=== PATIENT | female | born 1995 | race Hispanic/Latino ===

== ENCOUNTER 2019-10-04 16:21 | Emergency (ER) | payer SELFPAY ==
[2019-10-04] MEDS ORDERED: IBUPROFEN 400 MG TAB ONE (17:41)
--- NOTE | 2019-10-04 17:43 | RAD REPORT ---
EXAM DESCRIPTION: RAD - Spine Thoracic W/Swimmers - 10/04/2019 5:15 pm CLINICAL HISTORY: Back pain FINDINGS: No fracture or dislocation Mild scoliosis
[2019-10-04 17:46] LABS: Urine Blood TRACE (NEG); Urine Glucose NEGATIVE (NEG); Urine Protein NEGATIVE (NEG)
[2019-10-04 17:58] LABS: Urine Bacteria LOADED /HPF (<20); Urine Culture Reflex Order REFLEXED; Urine Mucus LIGHT /HPF (NONE SEEN); Urine RBC <5 /HPF (NONE SEEN)
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
[2019-10-04 19:26] VITALS: BP 123/82; TEMP 99.2; O2SAT 100
== END 2019-10-04 19:18 | disposition home or self-care (01) ==
LOC: ER 16:21
DX: S16.1XXA Strain of muscle, fascia and tendon at neck level, initial encounter (principal); M54.6 Pain in thoracic spine; N39.0 Urinary tract infection, site not specified; V43.52XA Car driver injured in collision with other type car in traffic accident, initial encounter; F17.210 Nicotine dependence, cigarettes, uncomplicated
CPT/HCPCS: 72040; 72072; 72125; 81003; 81015; 81025; 87077; 87086; 87088; 87186; 99284

== ENCOUNTER 2020-02-24 09:51 | Emergency (ER) | payer SELFPAY ==
--- NOTE | 2020-02-24 10:26 | ER ---
Nurse's Notes [facility] Name: Chio Pham Age: 25 yrs Sex: Female : 1995 Arrival Date: 02/24/2020 Time: 09:53 Bed 13 Private MD: Diagnosis: Streptococcal pharyngitis Presentation: 02/23 10:04 Chief complaint: Patient states: Chills/sweating, sore throat for 1 day. [place] hot last ll1 night. No N/V/D. Coronavirus screen: Client denies travel out of the [place] in the last 14 days. fever, sore throat, Client presents with at least one sign or symptom that may indicate coronavirus-19. Standard/surgical mask placed on the client. Ebola Screen: Patient denies travel to an Ebola-affected area in the 21 days before illness onset. Initial Sepsis Screen: Does the patient meet any 2 criteria? No. Patient's initial sepsis screen is negative. Risk Assessment: Do you want to hurt yourself or someone else? Patient reports no desire to harm self or others. Onset of symptoms was February 23, 2020. 10:04 Method Of Arrival: Ambulatory ll1 10:04 Acuity: MARCOS 4 ll1 Historical: - Allergies: 10:06 No Known Allergies; ll1 - Home Meds: 10:38 None [Active]; jl7 - PMHx: 10:38 None; jl7 - PSHx: 10:06 Appendectomy; ll1 - Immunization history:: Flu vaccine is not up to date. - Social history:: Smoking status: Patient reports the use of cigarette tobacco products, denies chronic smoking, but will smoke occasionally, Patient uses alcohol, only on a social basis. Patient/guardian denies using IV drugs. Screenin:38 Abuse screen: Denies threats or abuse. Denies injuries from another. Nutritional jl7 screening: No deficits noted. Tuberculosis screening: No symptoms or risk factors identified. Fall Risk None identified. Assessment: 10:37 General: Appears in no apparent distress. uncomfortable, Behavior is calm, cooperative, jl7 appropriate for age. Pain: Complains of pain in sore throat Pain currently is 8 out of 10 on a pain scale. Neuro: Level of Consciousness is awake, alert, obeys commands, Oriented to person, place, time, situation. Cardiovascular: Patient's skin is warm and dry. Respiratory: Airway is patent Respiratory effort is even, unlabored, Respiratory pattern is regular, symmetrical. EENT: Reports pain in sore throat. Derm: Skin is pink, warm \T\ dry. Vital Signs: 10:04 BP 110 / 94; Pulse 75; Resp 17; Temp 98.5; Pulse Ox 100% ; Pain 8/10; ll1 ED Course: 09:53 Patient arrived in ED. ag5 10:05 Triage completed. ll1 10:06 Arm band placed on Patient placed in an exam room, on a stretcher. ll1 10:07 Boo Castillo PA is PHCP. cp 10:07 Boo Guerra MD is Attending Physician. samson 10:32 Elias Toro, RN is Primary Nurse. jl7 10:38 Patient has correct armband on for positive identification. Bed in low position. Call jl7 light in reach. Side rails up X 1. 10:38 No provider procedures requiring assistance completed. Patient did not have IV access jl7 during this emergency room visit. Administered Medications: No medications were administered Outcome: 10:26 Discharge ordered by MD. cp 10:38 Discharged to home ambulatory. jl7 10:38 Condition: stable 10:38 Discharge instructions given to patient, Instructed on discharge instructions, follow up and referral plans. medication usage, Demonstrated understanding of instructions, follow-up care, medications, Prescriptions given X 1. 10:39 Patient left the ED. jl7 Signatures: Boo Castillo PA PA cp Leal, Jahala, RN RN jl7 Tila Alvarado ag5 Eddie Mayer RN RN ll1
--- NOTE | 2020-02-24 10:26 | EDPHYS ---
Physician Documentation [facility] Name: Chio Pham Age: 25 yrs Sex: Female : 1995 Arrival Date: 02/24/2020 Time: 09:53 Bed 13 Private MD: ED Physician Boo Guerra HPI: 02/23 10:19 This 25 yrs old Female presents to ER via Ambulatory with complaints of Sore cp Throat. 10:19 The patient presents with sore throat. The patient describes throat pain as constant. cp Onset: The symptoms/episode began/occurred yesterday. Severity of symptoms: in the emergency department the symptoms have improved, mildly. Associated signs and symptoms: Pertinent positives: fever, Pertinent negatives cough, diarrhea, dysphagia, vomiting. Historical: - Allergies: 10:06 No Known Allergies; ll1 - Home Meds: 10:38 None [Active]; jl7 - PMHx: 10:38 None; jl7 - PSHx: 10:06 Appendectomy; ll1 - Immunization history:: Flu vaccine is not up to date. - Social history:: Smoking status: Patient reports the use of cigarette tobacco products, denies chronic smoking, but will smoke occasionally, Patient uses alcohol, only on a social basis. Patient/guardian denies using IV drugs. ROS: 10:20 Eyes: Negative for injury, pain, redness, and discharge. cp 10:20 Constitutional: Negative for body aches, chills, fever, poor PO intake. 10:20 ENT: Positive for sore throat, Negative for drainage from ear(s), ear pain, difficulty swallowing, difficulty handling secretions. 10:20 Cardiovascular: Negative for chest pain. 10:20 Respiratory: Negative for cough, shortness of breath, wheezing. 10:20 Abdomen/GI: Negative for abdominal pain, nausea, vomiting, and diarrhea. 10:20 Skin: Negative for rash. 10:20 Neuro: Negative for headache. 10:20 All other systems are negative. Exam: 10:22 Head/Face: Normocephalic, atraumatic. cp 10:22 Constitutional: The patient appears in no acute distress, alert, awake, non-toxic, well developed, well nourished. 10:22 Eyes: Periorbital structures: appear normal, Conjunctiva: normal, no exudate, no injection, Sclera: no appreciated abnormality, Lids and lashes: appear normal, bilaterally. 10:22 ENT: External ear(s): are unremarkable, Nose: is normal, Mouth: Lips: moist, Oral mucosa: moist, Posterior pharynx: Airway: no evidence of obstruction, patent, Tonsils: no enlargement, no exudate, erythema, that is moderate, exudate, is not appreciated. 10:22 Neck: ROM/movement: is normal, is supple, no meningismus, no nuchal rigidity, Lymph nodes: lymphadenopathy is appreciated, anterior cervical nodes. 10:22 Chest/axilla: Inspection: normal. 10:22 Cardiovascular: Rate: 10:22 Respiratory: the patient does not display signs of respiratory distress, Respirations: normal, no use of accessory muscles, no retractions, labored breathing, is not present. Vital Signs: 10:04 BP 110 / 94; Pulse 75; Resp 17; Temp 98.5; Pulse Ox 100% ; Pain 8/10; ll1 MDM: 10:08 Patient medically screened. [facility] 10:10 Differential diagnosis: group A strep tonsillitis, mononucleosis, pharyngitis, cp retropharyngeal abcess tonsillitis, uvulitis, COVID-19. 10:25 Data reviewed: vital signs, nurses notes, and as a result, I will discharge patient. 10:25 Counseling: I had a detailed discussion with the patient and/or guardian regarding: the cp historical points, exam findings, and any diagnostic results supporting the discharge/admit diagnosis, to return to the emergency department if symptoms worsen or persist or if there are any questions or concerns that arise at home. Administered Medications: No medications were administered Disposition: 16:01 Co-signature as Attending Physician, Boo Guerra MD I agree with the assessment and [facility] plan of care. Disposition: 02/24/20 10:26 Discharged to Home. Impression: Streptococcal pharyngitis. - Condition is Stable. - Discharge Instructions: Strep Throat, Form - Excuse from Work, School, or Physical Activity. - Prescriptions for Amoxicillin 875 mg Oral Tablet - take 1 tablet by ORAL route every 12 hours for 10 days; 20 tablet. - Medication Reconciliation Form, Thank You Letter, Antibiotic Education, Prescription Opioid Use, Work release form form. - Follow up: Private Physician; When: 2 - 3 days; Reason: Worsening of condition. - Problem is new. - Symptoms have improved. Signatures: Boo Guerra MD MD cha Page, Corey, PA PA cp Elias Toro RN RN jl7 Eddie Mayer RN RN ll1 Corrections: (The following items were deleted from the chart) 10:39 10:26 02/24/2020 10:26 Discharged to Home. Impression: Streptococcal pharyngitis. jl7 Condition is Stable. Forms are Medication Reconciliation Form, Thank You Letter, Antibiotic Education, Prescription Opioid Use. Follow up: Private Physician; When: 2 - 3 days; Reason: Worsening of condition. Problem is new. Symptoms have improved. cp 21:18 10:25 ED course: VSS. Will discharge to home for continued monitoring. Patient cp instructed to quarantine while awaiting results of COVID-19 testing. cp
[2020-02-24 10:45] VITALS: BP 110/94; TEMP 98.5; O2SAT 100
== END 2020-02-24 10:39 | disposition home or self-care (01) ==
LOC: ER 09:51
DX: J02.0 Streptococcal pharyngitis (principal); F17.210 Nicotine dependence, cigarettes, uncomplicated
CPT/HCPCS: 99282

== ENCOUNTER 2020-03-25 08:19 | Emergency (ER) | payer SELFPAY ==
--- NOTE | 2020-03-25 08:37 | ER ---
Nurse's Notes [facility] Name: Chio Pham Age: 25 yrs Sex: Female : 1995 Arrival Date: 03/25/2020 Time: 08:22 Bed 4 Private MD: Diagnosis: Diarrhea, unspecified-resolving Presentation: 03/25 08:29 Chief complaint: Patient states: Diarrhea yesterday that is better today. Pt's work ss sent her over for a work note to return to work. Coronavirus screen: Client denies travel out of the [place] in the last 14 days. Ebola Screen: Patient denies exposure to infectious person. Patient denies travel to an Ebola-affected area in the 21 days before illness onset. Initial Sepsis Screen: Does the patient meet any 2 criteria? No. Patient's initial sepsis screen is negative. Does the patient have a suspected source of infection? No. Patient's initial sepsis screen is negative. Risk Assessment: Do you want to hurt yourself or someone else? Patient reports no desire to harm self or others. Onset of symptoms was March 24, 2020. 08:29 Method Of Arrival: Ambulatory ss 08:29 Acuity: MARCOS 5 ss Historical: - Allergies: 08:31 No Known Allergies; ss - Home Meds: 08:31 None [Active]; ss - PMHx: 08:31 None; ss - PSHx: 08:31 Appendectomy; ss - Immunization history:: Adult Immunizations up to date. - Social history:: Smoking status: Patient reports the use of cigarette tobacco products, denies chronic smoking, but will smoke occasionally. Screenin:32 Abuse screen: Denies threats or abuse. Nutritional screening: No deficits noted. ss Tuberculosis screening: Never had TB. Fall Risk None identified. Assessment: 08:32 General: Appears in no apparent distress. comfortable, Behavior is calm, cooperative, ss Denies fever, feeling ill, fatigue, chills. Pain: Denies pain. Neuro: Level of Consciousness is awake, alert, obeys commands, Oriented to person, place, time, situation. Cardiovascular: Capillary refill < 3 seconds is brisk in bilateral fingers. Respiratory: Airway is patent Respiratory effort is even, unlabored, Respiratory pattern is regular, symmetrical. GI: Reports diarrhea that started yesterday, is better today Patient currently denies nausea, vomiting. : Denies burning with urination. EENT: Oral mucosa is moist. Throat is clear. Derm: Skin is intact, is healthy with good turgor, Skin is pink, warm \T\ dry. normal. Musculoskeletal: Circulation, motion, and sensation intact. Range of motion: intact in all extremities, Swelling absent. Vital Signs: 08:29 BP 116 / 74; Pulse 60; Resp 15; Temp 97.8(TE); Pulse Ox 97% on R/A; Weight 81.65 kg; ss Height 5 ft. 3 in. (160.02 cm); Pain 0/10; 08:29 Body Mass Index 31.89 (81.65 kg, 160.02 cm) ED Course: 08:22 Patient arrived in ED. ds1 08:24 Steffen Calderon MD is Attending Physician. kdr 08:29 Dania Hernandez, LUI is Primary Nurse. ss 08:31 Triage completed. ss 08:31 Arm band placed on right wrist. ss 08:32 Patient has correct armband on for positive identification. Bed in low position. ss 08:42 No provider procedures requiring assistance completed. Patient did not have IV access ss during this emergency room visit. Administered Medications: No medications were administered Outcome: 08:37 Discharge ordered by . kdr 08:42 Medical screen evaluation completed per provider. Patient declined treatment. ss 08:42 Condition: good 08:42 Discharge instructions given to patient, Instructed on discharge instructions, follow up and referral plans. Demonstrated understanding of instructions, follow-up care. 08:48 Patient left the ED. ss Signatures: Steffen Calderon MD MD [facility] Stefania Silva ds1 Dania Hernandez, LUI RN ss
--- NOTE | 2020-03-25 08:37 | EDPHYS ---
Physician Documentation [facility] Name: Chio Pham Age: 25 yrs Sex: Female : 1995 Arrival Date: 03/25/2020 Time: 08:22 Bed 4 Private MD: ED Physician Steffen Calderon HPI: 03/25 08:37 This 25 yrs old Female presents to ER via Ambulatory with complaints of kdr Diarrhea. 08:37 The patient presents to the emergency department with diarrhea, that is intermittent. kdr Onset: The symptoms/episode began/occurred yesterday. Possible causes: bad food exposure. The symptoms are aggravated by nothing. The symptoms are alleviated by nothing. Associated signs and symptoms: The patient has no apparent associated signs or symptoms. Severity of symptoms: At their worst the symptoms were mild in the emergency department the symptoms have improved markedly. The patient has not experienced similar symptoms in the past. The patient has not recently seen a physician. Historical: - Allergies: 08:31 No Known Allergies; ss - Home Meds: 08:31 None [Active]; ss - PMHx: 08:31 None; ss - PSHx: 08:31 Appendectomy; ss - Immunization history:: Adult Immunizations up to date. - Social history:: Smoking status: Patient reports the use of cigarette tobacco products, denies chronic smoking, but will smoke occasionally. ROS: 08:37 Constitutional: Negative for fever, chills, and weight loss, Eyes: Negative for injury, kdr pain, redness, and discharge, ENT: Negative for injury, pain, and discharge, Neck: Negative for injury, pain, and swelling, Cardiovascular: Negative for chest pain, palpitations, and edema, Respiratory: Negative for shortness of breath, cough, wheezing, and pleuritic chest pain, Back: Negative for injury and pain, : Negative for injury, bleeding, discharge, and swelling, MS/Extremity: Negative for injury and deformity, Skin: Negative for injury, rash, and discoloration, Neuro: Negative for headache, weakness, numbness, tingling, and seizure activity. Psych: Negative for depression, anxiety, suicide ideation, homicidal ideation, and hallucinations, Allergy/Immunology: Negative for hives, rash, and allergies, Endocrine: Negative for neck swelling, polydipsia, polyuria, polyphagia, and marked weight changes, Hematologic/Lymphatic: Negative for swollen nodes, abnormal bleeding, and unusual bruising. 08:37 Abdomen/GI: Positive for abdominal pain, diarrhea, Negative for abdominal pain, nausea and vomiting, nausea, vomiting, abdominal cramps, abdominal distension, anorexia, dysphagia, hematemesis, black/tarry stool, rectal pain, rectal bleeding, bowel incontinence. Exam: 08:37 Constitutional: This is a well developed, well nourished patient who is awake, alert, kdr and in no acute distress. Head/Face: Normocephalic, atraumatic. Eyes: Pupils equal round and reactive to light, extra-ocular motions intact. Lids and lashes normal. Conjunctiva and sclera are non-icteric and not injected. Cornea within normal limits. Periorbital areas with no swelling, redness, or edema. Neck: Trachea midline, no thyromegaly or masses palpated, and no cervical lymphadenopathy. Supple, full range of motion without nuchal rigidity, or vertebral point tenderness. No Meningismus. Chest/axilla: Normal chest wall appearance and motion. Nontender with no deformity. No lesions are appreciated. Cardiovascular: Regular rate and rhythm with a normal S1 and S2. No gallops, murmurs, or rubs. Normal PMI, no JVD. No pulse deficits. Respiratory: Lungs have equal breath sounds bilaterally, clear to auscultation and percussion. No rales, rhonchi or wheezes noted. No increased work of breathing, no retractions or nasal flaring. Abdomen/GI: Soft, non-tender, with normal bowel sounds. No distension or tympany. No guarding or rebound. No evidence of tenderness throughout. Back: No spinal tenderness. No costovertebral tenderness. Full range of motion. Skin: Warm, dry with normal turgor. Normal color with no rashes, no lesions, and no evidence of cellulitis. MS/ Extremity: Pulses equal, no cyanosis. Neurovascular intact. Full, normal range of motion. Neuro: Awake and alert, GCS 15, oriented to person, place, time, and situation. Cranial nerves II-XII grossly intact. Motor strength 5/5 in all extremities. Sensory grossly intact. Cerebellar exam normal. Normal gait. Psych: Awake, alert, with orientation to person, place and time. Behavior, mood, and affect are within normal limits. Vital Signs: 08:29 BP 116 / 74; Pulse 60; Resp 15; Temp 97.8(TE); Pulse Ox 97% on R/A; Weight 81.65 kg; ss Height 5 ft. 3 in. (160.02 cm); Pain 0/10; 08:29 Body Mass Index 31.89 (81.65 kg, 160.02 cm) ss MDM: 08:37 Patient medically screened. kdr 08:37 Data reviewed: vital signs, nurses notes. kdr Administered Medications: No medications were administered Disposition: 08:37 Diarrhea. kdr Disposition: 03/25/20 08:37 Discharged to Home. Impression: Diarrhea, unspecified - resolving. - Condition is Stable. - Discharge Instructions: Food Choices to Help Relieve Diarrhea, Adult, Diarrhea, Adult, [id number]. - Medication Reconciliation Form, Thank You Letter, Work release form form. - Follow up: Private Physician; When: 2 - 3 days; Reason: If symptoms return, Further diagnostic work-up, Recheck today's complaints, Continuance of care, Re-evaluation by your physician. - Problem is new. - Symptoms have improved. Signatures: Steffen Calderon MD MD kdr Dania Hernandez RN RN ss Corrections: (The following items were deleted from the chart) 08:48 08:37 03/25/2020 08:37 Discharged to Home. Impression: Diarrhea, unspecified - ss resolving. Condition is Stable. Forms are Medication Reconciliation Form, Thank You Letter, Antibiotic Education, Prescription Opioid Use. Follow up: Private Physician; When: 2 - 3 days; Reason: If symptoms return, Further diagnostic work-up, Recheck today's complaints, Continuance of care, Re-evaluation by your physician. Problem is new. Symptoms have improved. kdr
[2020-03-25 08:57] VITALS: BP 116/74; TEMP 97.8; O2SAT 97
== END 2020-03-25 08:48 | disposition home or self-care (01) ==
LOC: ER 08:19
DX: R19.7 Diarrhea, unspecified (principal); F17.210 Nicotine dependence, cigarettes, uncomplicated
CPT/HCPCS: 99281